=== PATIENT | male | born 1990 | race Caucasian/White ===

== ENCOUNTER 2016-12-10 20:00 | Inpatient (IN) | payer OTHER ==
[~2016-12-10] VITALS: Ht 152.4 cm; Wt 84.4 kg
--- NOTE | ~2016-12-10 | PN ---
Unit #: [id number] #: [id number] Patient: TEDDY DILLON [id number] [facility] [address] [place] [address] [id number] MR#: [id number] NAME: TEDDY DILLON. ROOM: P186 Age: 26 Sex: M Admission Date: 12/10/2016 : 1990 Attending Physician: Teddy Kenyon M.D. Admitting Physician: Teddy Kenyon M.D. Primary Care Physician: Mildred Sandoval PROGRESS NOTES DATE 12/12/2016 DISCUSSION The patient remains seclusive to room stating that he "can't be around people." We have restarted Zyprexa which the patient states he has responded to well in the past. I have reviewed old records from the [facility] which indicate that he was treated at that facility with a combination of Seroquel and Thorazine, but the patient states that it was Zyprexa. We continue aggressive pharmacotherapy. The patient continues to deny recent substance use, hercules his drug screen is not yet available. Dictated by... Teddy Kenyon M.D. CB/alvin TD: 12/12/2016 14:16 JOB #: [id number] ELLIE BOWSER NOTES Page 1 of 1 X Teddy Kenyon MD PROGRESS NOTE
--- NOTE | ~2016-12-10 | PA ---
Unit #: [id number] #: [id number] Patient: TEDDY DILLON [id number] [facility] [address] [place] [address] [id number] MR#: [id number] NAME: TEDDY DILLON. ROOM: [facility] Age: 26 Sex: M Admission Date: 12/10/2016 : 1990 Date of Assessment: 12/11/2016 Attending Physician: Teddy Kenyon M.D. Admitting Physician: Teddy Kenyon M.D. Primary Care Physician: Baldev Johnson M.D. PSYCHIATRIC ASSESSMENT IDENTIFYING INFORMATION The patient is a 26-year-old white male admitted to this facility after he had presented voicing positive suicidal and homicidal ideation. INFORMANT(S) The patient and chart, reliability is good. CHIEF COMPLAINT None given HISTORY OF PRESENT ILLNESS The patient is a 26-year-old white male admitted to the [facility] unit after he had presented to this facility voicing positive suicidal and vague homicidal ideation. The patient was reporting increased paranoia. He has a history of methamphetamine abuse but claims to have last used "six months ago." He reports that eight months ago he was hospitalized at [facility] after an overdose and reports a history of several previous psychiatric hospitalization. He reports a history of treatment with Zyprexa and states that this medication was affective for him at a dose of 10 mg twice daily. The patient is presently unemployed and homeless. He suffers from hepatitis C. He has a history of self-mutilatory behavior per the chart. The patient was reporting positive suicidal ideation at the time of admission with threat to overdose which he has done in the past. PAST PSYCHIATRIC HISTORY As above. PAST MEDICAL HISTORY Noncontributory. MEDICATIONS None. ALLERGIES Haldol FAMILY HISTORY Noncontributory. SOCIAL HISTORY The patient is presently homeless. He has an extensive substance abuse history but claims to have been sober for the past six months. Unit #: [id number] #: [id number] Patient: TEDDY DILLON MENTAL STATUS EXAMINATION At this time reveals the patient to be a well-developed, well-nourished white male, appearing his stated age. He is in no apparent physical distress at the time of examination. He is awake, alert, and oriented in all spheres. His mood is mildly dysphoric. His affect blunted. Speech is impoverished but generally relevant and coherent. There are no gross deficits in memory or cognition noted. Intelligence is judged to be in the average range based on fund of knowledge. The patient is cooperative throughout the interview. He is currently endorsing positive suicidal as well as vague homicidal ideation without a target. He claims to be experiencing paranoid delusional thinking and auditory hallucinations. His judgment and insight are significantly impaired. ASSETS AND LIABILITIES ASSETS: To be assessed. LIABILITIES: Lack of resources. DIAGNOSTIC IMPRESSION 1. Methamphetamine use disorder. 2. Mood disorder unspecified. 3. Psychotic disorder unspecified. 4. Hepatitis C. PSYCHIATRIC PLAN/TREATMENT GOALS The patient remains hospitalized for safety and stabilization. Given his reported response to Zyprexa this medication will be started at a dose of 10 mg twice daily. Suicide precautions are in place. ESTIMATED LENGTH OF STAY Five to seven days. Dictated by... Teddy Kenyon M.D. PETE/gray TD: 12/12/2016 00:10 JOB #: [id number] PSYCHIATRIC ASSESSMENT Page 1 of 1 X Teddy Kenyon MD X PSYCHIATRIC ASSESSMENT
--- NOTE | ~2016-12-10 | HP ---
Unit #: [id number] #: [id number] Patient: TEDDY DILLON [id number] [facility] [address] [place] [address] [id number] MR#: [id number] NAME: TEDDY DILLON. ROOM: 86 Age: 26 Sex: M Admission Date: 12/10/2016 : 1990 Attending Physician: Teddy Kenyon M.D. Admitting Physician: Teddy Kenyon M.D. Primary Care Physician: Baldev Johnson M.D. HISTORY AND PHYSICAL HISTORY AND PHYSICAL COMPLETED 12/11/2016 HISTORY OF PRESENT ILLNESS Teddy is a 26-year-old male, admitted on 12/10/2016 to [facility] for depression and paranoia. He also has a history of heroin and meth use. PAST MEDICAL HISTORY Hepatitis C. PAST SURGICAL HISTORY None. SOCIAL HISTORY He smokes half pack of cigarettes daily, denies alcohol use, denies any current illegal drug use. He does have a history of heroin and meth use. He is currently single and homeless. FAMILY HISTORY Noncontributory. REVIEW OF SYSTEMS CONSTITUTIONAL: No fever or chills. HEENT: Denies any sore throat, ear pain or runny nose. CARDIOVASCULAR: Denies chest pain, irregular heart rhythm or palpitations. CHEST: Denies shortness of breath or cough. No hemoptysis. GASTROINTESTINAL: Denies nausea, vomiting, diarrhea or chronic constipation. ENDOCRINE: Denies history of increased thirst or urination. No recent significant weight loss or gain. GENITOURINARY: Denies dysuria, frequency, or hematuria. SKIN: Denies any rashes. HEMATOLOGIC: Denies history of increased bleeding or bruising. MUSCULOSKELETAL: Denies any hot, swollen joints. No generalized muscle pain. NEUROLOGIC: Denies problems with vision or speech. No frequent, severe headaches. No numbness, tingling or weakness in any extremities. Denies loss of bladder or bowel control. CURRENT MEDICATIONS None. ALLERGIES Unit #: [id number] #: [id number] Patient: TEDDY DILLONdoomayra. PHYSICAL EXAMINATION GENERAL: Alert, oriented, and no acute distress. VITAL SIGNS: Blood pressure 119/72, heart rate 90, respirations 20, temperature 98.1. HEIGHT: 5 feet 0 inches. WEIGHT: 186 pounds. SKIN: Warm and dry without rash or lesion. HEENT: Normocephalic. TMs not viewed. Oral and nasal passages clear. Conjunctivae clear. PERRLA. EOMs intact. NECK: Supple without lymphadenopathy or thyromegaly. HEART: Regular rate and rhythm without murmur. LUNGS: Clear. ABDOMEN: Soft, nontender. : Not done. EXTREMITIES: No evidence of cyanosis, clubbing or edema. Moves all without focal deficit. NEUROLOGICAL: Grossly within normal limits. Cranial Nerves: II: Visual victoria are intact. III, IV AND : Extraocular movements are intact. Pupils are equal, round and reactive to light. V: Facial sensation is grossly normal. VII: Facial movements and expression are normal. VIII: Auditory acuity grossly intact. IX, X: Uvula is midline. Phonation is normal. XI: Patient shrugs shoulders and turns head normally. XII: Tongue protrudes in the midline. Sensory and Motor Function: Sensory and motor sensation is grossly normal. Motor: moves all extremities well. Coordination: Gait is normal. Deep Tendon Reflexes: Intact. IMPRESSION Psychiatric admission. RECOMMENDATIONS Psychiatric, per psychiatrist. MEDICAL No contraindications to participating in facility's activities. MEDICAL PROGNOSIS Good. MEDICAL CONDITION Stable. Dictated by... Shelby Alatorre/von TD: 12/11/2016 12:39 JOB #: [id number] Unit #: [id number] #: [id number] Patient: TEDDY DILLON HISTORY AND PHYSICAL Page 1 of 1 X LIBORIO QUINN APRN X HISTORY AND PHYSICAL
--- NOTE | ~2016-12-10 | DS ---
Unit #: [id number] #: [id number] Patient: KAELYN DILLON [id number] [facility] [address] [place] [address] [id number] MR#: [id number] NAME: KAELYN DILLON. ROOM: [facility] Age: 26 Sex: M Admission Date: 12/10/2016 : 1990 Discharge Date: 12/13/2016 Attending Physician: Kaelyn Kenyon M.D. Primary Care Physician: Baldev Johnson M.D. DISCHARGE SUMMARY REASON FOR ADMISSION The patient is a 26-year-old, single, white male, admitted to the [facility] unit with a history of methamphetamine abuse and psychosis. HOSPITAL COURSE The patient was admitted to the [address] [place] [address] unit and placed on suicide precautions. He was begun on Zyprexa 10 mg b.i.d. as per his request and seemed to tolerate the medication well. The patient's "psychotic symptoms are" seemed to clear rapidly leading this physician to believe that despite the patient's protestations to the otherwise he had in fact been using methamphetamine recently. Whatever the case, on 12/13/2016, the patient requested discharge. He was bright euthymic and had made arrangements to [facility] Discharge was ordered. FINAL DIAGNOSES Methamphetamine use disorder with intoxication and perceptual disturbance, resolved; psychotic disorder, unspecified. DISPOSITION ON DISCHARGE The patient is discharged on the following medications: Zyprexa 10 mg b.i.d. for psychosis. DISCHARGE INSTRUCTIONS No dietary or physical restrictions were placed upon the patient at the time of discharge. FOLLOWUP Followup will take place through the auspices of community mental health resources. PROGNOSIS The patient's prognosis is fair. Dictated by... Kaelyn Kenyon M.D. CB/laureen TD: 12/13/2016 15:35 JOB #: [id number] Unit #: [id number] #: [id number] Patient: KAELYN DILLON DISCHARGE SUMMARY Page 1 of 1 X Kaelyn Kenyon MD X DISCHARGE SUMMARY
[2016-12-11 12:30] LABS: BASOPHIL# 0.1 X10e3 (0-0.3); BASOPHIL% 0.9 % (0-2.5); EOSINOPHIL# 0.3 X10e3 (0-0.7); EOSINOPHIL% 4.2 % (0.0-7.0); HEMATOCRIT 46.2 % (38.0-50.0); HEMOGLOBIN 15.9 gm/dL (13.0-16.0); LYMPHOCYTE# 2.6 X10e3 (1.0-3.5); LYMPHOCYTE% 36.5 % (17.0-45.0); MEAN CELL VOLUME 88.4 FL (83-96); MEAN CORPUSCULAR HEMOGLOBIN 30.4 PG (28-34); MEAN CORPUSCULAR HGB CONC 34.4 g/dL (30-36); MONOCYTE# 0.9 X10e3 (0-1.0); MONOCYTE% 12.5 % (3.0-12.0); NEUTROPHIL# 3.2 X10e3 (1.5-7.1); NEUTROPHIL% 45.9 % (40-75); PLATELET COUNT 215 X10e3 (140-420); RED BLOOD COUNT 5.23 X10e (3.90-5.60); RED CELL DISTRIBUTION WIDTH 12.9 % (11.0-15.5)
[2016-12-11 12:33] LABS: DIFF IND NO
[2016-12-11 13:09] LABS: ALBUMIN SERUM 3.7 g/dL (3.5-5.0); BILIRUBIN,TOTAL 0.3 mg/dL (0.2-2.0); BUN/CREATININE RATIO 18.88; CALCIUM SERUM 8.8 mg/dL (8.4-10.2); CREATININE SERUM 0.9 mg/dL (0.6-1.4); GLOM FILT RATE Estimated 117.5 mL/min (>60); PROTEIN TOTAL SERUM 6.1 g/dL (6.0-8.3)
== END 2016-12-13 16:13 | DRG 885 ==
LOC: P1E 22:03
PROVIDERS: Specialist
DX: F39 Unspecified mood [affective] disorder (principal); R45.851 Suicidal ideations; R45.850 Homicidal ideations; F23 Brief psychotic disorder; F15.10 Other stimulant abuse, uncomplicated; B19.20 Unspecified viral hepatitis C without hepatic coma; Z88.8 Allergy status to other drugs, medicaments and biological substances
CPT/HCPCS: 80053; 85025; J1200